=== PATIENT | male | born 1975 | race Caucasian/White ===

== ENCOUNTER 2016-12-05 19:19 | Emergency (ER) | payer OTHER ==
[2016-12-05 19:31] VITALS: RESP 16; TEMP 98.4
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
[2016-12-05] MEDS ORDERED: CEPHALEXIN 500 MG CAP PO ONE (20:59)
[2016-12-05] MEDS ORDERED: CEPHALEXIN 500MG PREPACK#4 BTL TAKEHOME ONE ×2 (21:20→21:21)
[2016-12-05 21:26] VITALS: BP 122/81; PULSE 62; O2SAT 97
== END 2016-12-05 21:26 | disposition home or self-care (01) ==
PROC: 0HQEXZZ Repair Left Lower Arm Skin, External Approach (ICD-10-PCS; principal; 2016-12-05)
DX: S51.812A Laceration without foreign body of left forearm, initial encounter (principal); S70.212A Abrasion, left hip, initial encounter; S70.211A Abrasion, right hip, initial encounter; V19.3XXA Pedal cyclist (driver) (passenger) injured in unspecified nontraffic accident, initial encounter; Y92.410 Unspecified street and highway as the place of occurrence of the external cause

== ENCOUNTER 2016-12-07 12:06 | Emergency (ER) | payer OTHER | END 2016-12-07 12:12 | disposition left against medical advice (07) | LOC: CED 12:06 | DX: Z53.21 Procedure and treatment not carried out due to patient leaving prior to being seen by health care provider (principal) ==

== ENCOUNTER → 2018-01-16 | Outpatient (CLI) | payer OTHER | LOC: FIMAGING 19:19 | PROVIDERS: ATTEND Neurological Surgery | DX: M50.30 Other cervical disc degeneration, unspecified cervical region (principal); M48.02 Spinal stenosis, cervical region ==

== ENCOUNTER → 2018-01-17 | Outpatient (CLI) | payer OTHER | LOC: FIMAGING 07:55 | PROVIDERS: ATTEND Neurological Surgery | DX: S12.501D Unspecified nondisplaced fracture of sixth cervical vertebra, subsequent encounter for fracture with routine healing (principal); S22.31XD Fracture of one rib, right side, subsequent encounter for fracture with routine healing; S42.024D Nondisplaced fracture of shaft of right clavicle, subsequent encounter for fracture with routine healing; M43.13 Spondylolisthesis, cervicothoracic region ==